=== PATIENT | female | born 1960 | race Caucasian/White ===

== ENCOUNTER → 2016-08-15 | Outpatient (CLI) | payer BC ==
[~2016-08-15] MED LIST: ASP81TEC PO; ASPI-266 PO; BUTA-234 PO; ESTR0.455 PO; FLUO10CA19 PO; FLUO20CA25 PO; FLUO20CA42 PO; IBP600T1 PO; IBP800T PO; MNTL10T PO; NITR100C PO; NITR100C3 PO; OXYC1TAB87 PO; PANT20TA2 PO; VERA40TA2 PO; fluoxetine
--- OUTSIDE RECORDS SUMMARY | 2016-08-15 10:38 | XMS REPORT | Continuity of Care Document ---
Author Author [facility] Organization [facility] Address Unknown Phone Unavailable Care Team Providers Care Foreclosure Field Inspector Name Role Phone Marty Zimmer PCP Unavailable Source Comments Some departments are not documenting in the electronic medical record. If you do not see the information that you expected, contact Release of Information in the Health Information Management department at [phone] for further assistance in locating additional records.[facility] Active Allergies and Adverse Reactions Allergen Noted Date Severity Reactions Comments Iv Contrast Dye, Iodine 12/28/2014 Medium SHORTNESS OF BREATH Containing Penicillins 12/28/2014 Medium HIVES Current Medications Prescription Sig. Disp. Refills Start End Date Status Date aspirin EC 81 mg tablet Take 81 mg by mouth Active daily. FLUoxetine (PROZAC) 10 mg Take 20 mg by mouth Active capsule daily. nitrofurantoin Take 100 mg by mouth as Active (MACRODANTIN) 50 mg Needed. 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 Weakness of left side of body 12/28/2014 Overview: Functional since its fluctuating Resolved Problems Problem Noted Date Resolved Date TIA (transient ischemic attack) 12/28/2014 12/28/2014 Social History Tobacco Use Types Packs/Day Years Used Date Never Smoker Alcohol Use Drinks/Week oz/Week Comments Yes 1 Glasses of 0.6 wine Last Filed Vital Signs Vital Sign Reading Time Taken Blood Pressure 124/73 05/23/2015 2:03 PM CDT Pulse 83 05/23/2015 2:03 PM CDT Temperature 36.9 C (98.5 F) 05/23/2015 2:03 PM CDT Respiratory Rate 18 05/23/2015 2:03 PM CDT Height 1.778 m (5' 10") 05/23/2015 2:03 PM CDT Weight 95.709 kg (211 lb) 05/23/2015 2:03 PM CDT Body Mass Index 30.28 05/23/2015 2:03 PM CDT Oxygen Saturation 98% 05/23/2015 2:03 PM CDT Plan of Care Health Maintenance Due Date Last Done Comments Hepatitis C Screening 1960 Physical (Comprehensive) 1967 Exam Pertussis Vaccine 1971 Tetanus Vaccine 1977 Cervical Cancer Screening 1981 Breast Cancer Screening 2000 Colorectal Cancer 2010 Screening Influenza Vaccine 04/12/2016 Results from Last 3 Months Not on file
--- NOTE | 2016-08-15 12:27 | Diagnostic Imaging Report ---
EXAMINATION: PA and lateral views of the chest. INDICATION: Chest pain. FINDINGS: The lungs are clear of focal infiltrate. There is a 7 mm nodule projecting over the right lung base on the PA view which is not seen on the lateral projection. The heart size is normal. There is no effusion or pneumothorax. The mediastinum and justin appear unremarkable. IMPRESSION: There is a 7 mm nodular density projecting over the right lung base on the PA view which is not seen on the lateral projection and could be an end on vessel or in the soft tissues. Unenhanced low dose CT scan evaluation to rule out a pulmonary nodule is recommended. The report was faxed to the office of Dr. Maldonado by VICENTE at 12:30 PM. Dictated by: Dictated on workstation # [id number]
== END ==
LOC: RAD 10:28
PROVIDERS: ATTEND Family Medicine
DX: R07.9 Chest pain, unspecified (principal)
CPT/HCPCS: 71020

== ENCOUNTER → 2016-08-17 | Outpatient (CLI) | payer BC ==
--- OUTSIDE RECORDS SUMMARY | 2016-08-17 14:45 | XMS REPORT | Continuity of Care Document ---
Author Author [facility] Organization [facility] Address Unknown Phone Unavailable Care Team Providers Care General Ii Farmworker Name Role Phone Marty Zimmer PCP Unavailable Source Comments Some departments are not documenting in the electronic medical record. If you do not see the information that you expected, contact Release of Information in the Health Information Management department at [phone] for further assistance in locating additional records.[facility] Active Allergies and Adverse Reactions Allergen Noted [...]
--- NOTE | 2016-08-17 15:15 | Diagnostic Imaging Report ---
PROCEDURE: CT chest without contrast. TECHNIQUE: Multiple contiguous axial images were obtained through the chest without the use of intravenous contrast. INDICATION: Right lung nodule. FINDINGS: The right lower lung nodule seen on the chest x-ray is a 6 mm calcified granuloma as seen on the CT. There are right hilar calcified lymph nodes present which is also consistent with granulomatous disease. No suspicious mass or infiltrate is seen within either lung. There is no effusion or pneumothorax. There is no mediastinal mass or adenopathy. IMPRESSION: There are changes of old granulomatous disease. The density seen on the chest x-ray represents calcified granuloma. No suspicious abnormality is seen. Dictated by: Dictated on workstation # [id number]
== END ==
LOC: RAD 14:42
PROVIDERS: ATTEND Family Medicine
DX: R91.1 Solitary pulmonary nodule (principal)
CPT/HCPCS: 71250

== ENCOUNTER 2017-05-15 12:35 | Emergency (ER) | payer BC ==
[~2017-05-15] VITALS: Ht 170.2 cm; Wt 79.4 kg
--- OUTSIDE RECORDS SUMMARY | 2017-05-15 12:40 | XMS REPORT | Clinical Summary ---
Author Author [facility] Organization [facility] Address Unknown Phone Unavailable Care Team Providers Care Purchasing Agent Name Role Phone PCP Unavailable Source Comments Some departments are not documenting in the electronic medical record. If you do not see the information that you expected, contact Release of Information in the Health Information Management department at [phone] for further assistance in locating additional records.[facility] Allergies Active Allergy Reactions Severity Noted Date Comments Iodinated Contrast- Oral SHORTNESS OF BREATH Medium 12/28/2014 And Iv Dye Penicillins HIVES Medium 12/28/2014 Current Medications Prescription Sig. Disp. Refills Start [...] Date TIA (transient ischemic attack) 12/28/2014 12/28/2014 Family History Medical History Relation Name Comments Cancer Father Hypertension Father Stroke Father Relation Name Status Comments Father Alive Social History Tobacco Use Types Packs/Day Years Used Date Never Smoker Alcohol Use Drinks/Week oz/Week Comments Yes 1 Glasses of 0.6 wine Sex Assigned at Date Recorded Not on file Last Filed Vital Signs Vital Sign Reading Time Taken Blood Pressure 124/73 05/23/2015 2:03 PM CDT Pulse 83 05/23/2015 2:03 PM CDT Temperature 36.9 C (98.5 F) 05/23/2015 2:03 PM CDT Respiratory Rate 18 05/23/2015 2:03 PM CDT Oxygen Saturation 98% 05/23/2015 2:03 PM CDT Inhaled Oxygen - - Concentration Weight 95.7 kg (211 lb) 05/23/2015 2:03 PM CDT Height 177.8 cm (5' 10") 05/23/2015 2:03 PM CDT Body Mass Index 30.28 05/23/2015 2:03 PM CDT Plan of Treatment Health Maintenance Due Date Last Done Comments HEPATITIS C SCREENING 1960 PHYSICAL (COMPREHENSIVE) 1967 EXAM PERTUSSIS VACCINE 1971 TETANUS VACCINE 1977 CERVICAL CANCER SCREENING 1990 BREAST CANCER SCREENING 2000 COLORECTAL CANCER 2010 SCREENING INFLUENZA VACCINE 05/12/2017 Results Not on filefrom Last 3 Months
--- OUTSIDE RECORDS SUMMARY | 2017-05-15 12:41 | XMS REPORT | Continuity of Care Document ---
Author Author [facility] Address Unknown Phone Unavailable Allergies Active Description Code Type Severity Reaction Onset Reported/Identified Relationship to Patient Clinical Status Yes Penicillins Drug Allergy N/A N/A 04/21/2013 Yes Iodinated Contrast Media - IV Dye [id number] Drug Allergy Mild Dyspnea 12/25/2014 Yes Iodinated Contrast Media - Oral and [id number] Drug Allergy Mild Dyspnea 12/25/2014 Yes Penicillins [id number] Drug Allergy Unknown N/A 12/25/2014 Medications Problems Date Dx Coded Attending Type Code Diagnosis Diagnosed By 09/22/2011 053.9 HERPES ZOSTER WITHOUT COMPLICATION 09/22/2011 099.9 VENEREAL DISEASE UNSPECIFIED 09/22/2011 112.1 CANDIDIASIS VAGINAL 09/22/2011 V76.2 CERVICAL CANCER SCREENING (PAP SMEAR) 09/22/2011 053.9 HERPES ZOSTER WITHOUT COMPLICATION 09/22/2011 099.9 VENEREAL DISEASE UNSPECIFIED 09/22/2011 112.1 CANDIDIASIS VAGINAL 09/22/2011 V76.2 CERVICAL CANCER SCREENING (PAP SMEAR) 09/22/2011 MAXIMOE INDEPENDENT TRADER, LIZBETH A 053.9 HERPES ZOSTER WITHOUT COMPLICATION 09/22/2011 RAJDORYSE INDEPENDENT TRADER, LIZBETH A 099.9 VENEREAL DISEASE UNSPECIFIED 09/22/2011 RAJDORYSE INDEPENDENT TRADER, LIZBETH A 112.1 CANDIDIASIS VAGINAL 09/22/2011 RAJDORYSE INDEPENDENT TRADER, LIZBETH A V76.2 CERVICAL CANCER SCREENING (PAP SMEAR) 09/22/2011 RAJOTTE INDEPENDENT TRADER, LIZBETH A 053.9 HERPES ZOSTER WITHOUT COMPLICATION 09/22/2011 MAXIMOE INDEPENDENT TRADER, LIZBETH A 099.9 VENEREAL DISEASE UNSPECIFIED 09/22/2011 RAJDORYSE INDEPENDENT TRADER, LIZBETH A 112.1 CANDIDIASIS VAGINAL 09/22/2011 RAJDORYSE INDEPENDENT TRADER, LIZBETH A V76.2 CERVICAL CANCER SCREENING (PAP SMEAR) 09/22/2011 FARZAD INDEPENDENT TRADER, LIZBETH A 053.9 HERPES ZOSTER WITHOUT COMPLICATION 09/22/2011 FARZAD ORTIZ LIZBETH A 099.9 VENEREAL DISEASE UNSPECIFIED 09/22/2011 HARRIET PANDA APRNYL A 112.1 CANDIDIASIS VAGINAL 09/22/2011 HARRIET PANDA APRNYL A V76.2 CERVICAL CANCER SCREENING (PAP SMEAR) 01/31/2012 Ot 836.2 TEAR MENISCUS NEC-CURREN 01/31/2012 Ot 959.7 LOWER LEG INJURY NOS 01/31/2012 Ot E000.8 OTHER EXTERNAL CAUSE STATUS 01/31/2012 Ot E849.0 ACCIDENT IN HOME 01/31/2012 Ot E880.9 FALL ON STAIR/STEP NEC 03/31/2012 943.29 BLISTERS WITH EPIDERMAL LOSS DUE TO BURN (SECOND DEGREE) OF MULTIPLE SITES OF UPPER LIMB EXCEPT WRIST AND HAND 03/31/2012 943.29 BLISTERS WITH EPIDERMAL LOSS DUE TO BURN (SECOND DEGREE) OF MULTIPLE SITES OF UPPER LIMB EXCEPT WRIST AND HAND 03/31/2012 FARZAD ORTIZ LIZBETH A 943.29 BLISTERS WITH EPIDERMAL LOSS DUE TO BURN (SECOND DEGREE) OF MULTIPLE SITES OF UPPER LIMB EXCEPT WRIST AND HAND 03/31/2012 FARZAD ORTIZ, LIZBETH A 943.29 BLISTERS WITH EPIDERMAL LOSS DUE TO BURN (SECOND DEGREE) OF MULTIPLE SITES OF UPPER LIMB EXCEPT WRIST AND HAND 03/31/2012 FARZAD ORTIZ, LIZBETH A 943.29 BLISTERS WITH EPIDERMAL LOSS DUE TO BURN (SECOND DEGREE) OF MULTIPLE SITES OF UPPER LIMB EXCEPT WRIST AND HAND 04/21/2013 133.0 SCABIES 04/21/2013 708.9 URTICARIA/HIVES UNSPEC 04/21/2013 FARZAD ORTIZ LIZBETH A 133.0 SCABIES 04/21/2013 FARZAD INDEPENDENT TRADER, LIZBETH A 708.9 URTICARIA/HIVES UNSPEC 04/21/2013 FARZAD ORTIZ LIZBETH A 133.0 SCABIES 04/21/2013 FARZAD ORTIZ LIZBETH A 708.9 URTICARIA/HIVES UNSPEC 04/21/2013 FARZAD INDEPENDENT TRADER, LIZBETH A 133.0 SCABIES 04/21/2013 FARZAD ORTIZ LIZBETH A 708.9 URTICARIA/HIVES UNSPEC 07/24/2013 REGINA YOUSSEFGAGAN Ot 346.80 OTH FORMS MIGRAINE W/O INTRACT MGRN W/O 07/24/2013 GAGAN TAPIA MD Ot 368.8 VISUAL DISTURBANCES NEC 07/24/2013 GAGAN TAPIA MD Ot 434.91 CEREBRAL ART OCCLUSION NOS W CEREBRAL IN 07/24/2013 GAGAN TAPIA MD Ot 518.89 OTHER DISEASES OF LUNG, NEC 07/24/2013 GAGAN TAPIA MD Ot 728.87 MUSCLE WEAKNESS (GENERALIZED) 07/24/2013 GAGAN TAPIA MD Ot 793.19 OTHER NONSPECIFIC ABNORMAL FINDING OF ADRIAN 07/24/2013 GAGAN TAPIA MD Ot 799.02 HYPOXEMIA 07/24/2013 GAGAN TAPIA MD Ot V04.81 ND FOR PROPHYLACTIC VACCIN AND INOCULATI 08/25/2013 KRYSTIAN JARRETT DO Ot 300.00 ANXIETY STATE NOS 08/25/2013 KRYSTIAN JARRETT DO Ot 346.90 MIGRAINE UNSPECIFIED W/O INTRACT MGRN W/ 08/25/2013 KRYSTIAN JARRETT DO Ot V58.69 OTH MED,LT,CURRENT USE 10/22/2013 RAJOTTE INDEPENDENT TRADER, LIZBETH A 700 CALLUS/CORN 10/22/2013 RAJOTTE INDEPENDENT TRADER, LIZBETH A 700 CALLUS/CORN 10/22/2013 RAJOTTE INDEPENDENT TRADER, LIZBETH A 700 CALLUS/CORN 12/10/2013 RAJOTTE INDEPENDENT TRADER, LIZBETH A 461.9 SINUSITIS ACUTE 12/10/2013 MAXIMOE ANGEL, LIZBETH A 461.9 SINUSITIS ACUTE 12/20/2013 DAYAMI NEGRETE Ot 346.80 OTH FORMS MIGRAINE W/O INTRACT MGRN W/O 12/20/2013 DAYAMI NEGRETE Ot 434.91 CEREBRAL ART OCCLUSION NOS W CEREBRAL IN 06/03/2014 FARZAD ORTIZ LIZBETH A V04.81 FLU SHOT 07/21/2014 GAGAN TAPIA MD Ot 433.10 07/21/2014 DAYAMI NEGRETE Ot 722.10 07/21/2014 DAYAMI NEGRETE Ot 722.93 07/21/2014 DAYAMI NEGRETE Ot 729.5 07/21/2014 Ot 346.80 07/21/2014 Ot 434.91 07/21/2014 Ot 346.80 07/21/2014 Ot 434.91 07/21/2014 HUSSAIN ALDRICH MD Ot 346.90 MIGRAINE UNSPECIFIED W/O INTRACT MGRN W/ 07/21/2014 HUSSAIN ALDRICH MD Ot 784.0 HEADACHE 12/25/2014 Ot 346.80 12/25/2014 Ot 434.91 12/25/2014 Ot 346.80 12/25/2014 Ot 434.91 12/28/2014 LYN MCFARLAND MD Ot 346.80 OTH FORMS MIGRAINE W/O INTRACT MGRN W/O 12/28/2014 LYN MCFARLAND MD Ot 435.9 TRANS CEREB ISCHEMIA NOS 12/28/2014 BRUNA YOUSSEF, LYN Arredondo Ot 786.50 CHEST PAIN NOS 02/22/2015 WICHO YOUSSEF, RONEY Ot V72.84 02/22/2015 WICHO YOUSSEF, RONEY Ot V72.84 02/23/2015 WICHO YOUSSEF, RONEY Ot 455.0 INT HEMORRHOID W/O COMPL 02/23/2015 WICHO YOUSSEF, RONEY Ot 455.3 EXT HEMORRHOID W/O COMPL 02/23/2015 WICHO YOUSSEF, RONEY Ot 530.11 REFLUX ESOPHAGITIS 02/23/2015 WICHO YOUSSEF, RONEY Ot 535.50 UNSP GASTRITIS GASTRODUODENITIS W/O ME 02/23/2015 WICHO YOUSSEF, RONEY Ot 553.3 DIAPHRAGMATIC HERNIA 02/23/2015 WICHO YOUSSEF, RONEY Ot V16.3 FAMILY HX-BREAST MALIG 02/23/2015 WICHO YOUSSEF, RONEY Ot V76.51 SCREEN MAL NEOP-COLON 05/16/2015 HUSSAIN ALDRICH MD Ot G43.109 MIGRAINE WITH AURA, NOT INTRACTABLE, W/O 05/16/2015 HUSSAIN ALDRICH MD Ot G43.909 MIGRAINE, UNSP, NOT INTRACTABLE, WITHOUT 08/15/2016 REGINA YOUSSEF, GAGAN Cooley Ot 433.10 CAROTID ARTERY OCCLUSION W O CEREBRAL IN 08/15/2016 DAYAMI NEGRETE Ot 722.10 LUMBAR DISC DISPLACEMENT 08/15/2016 DAYAMI NEGRETE Ot 722.93 DISC DIS NEC/NOS-LUMBAR 08/15/2016 DAYAMI NEGRETE Ot 729.5 PAIN IN LIMB 08/15/2016 Ot 346.80 OTH FORMS MIGRAINE W/O INTRACT MGRN W/O 08/15/2016 Ot 434.91 CEREBRAL ART OCCLUSION NOS W CEREBRAL IN 08/15/2016 WICHO YOUSSEF, RONEY Ot V72.84 EXAM PRE-OPERATIVE NOS 08/20/2016 GAGAN TAPIA MD Ot R91.1 SOLITARY PULMONARY NODULE 09/03/2016 GAGAN TAPIA MD Ot R07.9 CHEST PAIN, UNSPECIFIED 09/03/2016 GAGAN TAPIA MD Ot R91.1 SOLITARY PULMONARY NODULE Procedures Code [place] [address] THERAPUTIC INJ SQ/IM 04/21/2013 J1030 DEPO MEDROL 40 MG INJ 04/21/2013 Results Encounters ACCT No. Visit Date/Time Discharge Status Pt. Type Provider Facility Loc./Unit Complaint [id number] 06/03/2014 14:03:00 06/03/2014 23: 59:59 CLS Outpatient LIZBETH PANDA APRN [id number] 12/10/2013 10:56:00 12/10/2013 23: 59:59 CLS Outpatient LIZBETH PANDA APRN [id number] 10/22/2013 14:14:00 10/22/2013 23: 59:59 CLS Outpatient LIZBETH PANDA APRN [id number] 03/31/2012 18:24:00 03/31/2012 23: 59:59 CLS Outpatient [id number] 04/21/2013 13:37:00 Document Registration [id number] 08/17/2016 14:42:00 2016 23:59:59 CLS Outpatient GAGAN TAPIA MD [facility] RAD R LOWER LUNG 7MM NODULA DENSITY BY CXR [id number] 08/15/2016 10:28:00 2016 23:59:59 CLS Outpatient GAGAN TAPIA MD [facility] RAD LT UPPER CHEST PAIN [id number] 05/16/2015 21:16:00 2014 23:33:00 DIS Emergency HUSSAIN ALDRICH MD [facility] ER POSSIBLE STROKE [id number] 02/23/2015 07:47:00 2014 11:56:00 DIS Outpatient RONEY SANDS MD [facility] SDC SCREENING; REFLUX [id number] 02/17/2015 06:52:00 2014 23:59:59 CLS Outpatient RONEY SANDS MD [facility] PREOP SCREENING; REFLUX [id number] 12/25/2014 15:20:00 2014 10:05:00 DIS Inpatient LYN MCFARLAND MD [facility] 4TH LEFT SIDED WEAKNESS HEADACHE ATYPICAL CHEST PAIN [id number] 07/21/2014 15:37:00 2013 18:03:00 DIS Emergency HUSSAIN ALDRICH MD [facility] ER HEADACHE [id number] 10/23/2013 10:07:00 2013 00:01:00 DIS Outpatient DAYAMI NEGRETE [facility] ONC [id number] 10/28/2013 13:27:00 2013 23:59:59 CLS Outpatient DAYAMI NEGRETE [facility] RAD LBP, LEFT LEG PAIN [id number] 08/25/2013 14:34:00 2013 17:16:00 DIS Emergency LUIZA SANCHEZ KRYSTIAN Jim [facility] ER WEAKNESS/STERN/CONFUSED [id number] 07/31/2013 12:44:00 2012 23:59:59 CLS Outpatient GAGAN TAPIA MD [facility] RAD LFT WEAKNESS, DIZZINESS [id number] 07/20/2013 14:58:00 2012 10:50:00 DIS Inpatient GAGAN TAPIA MD [facility] 4TH CVA [id number] 01/22/2014 00:00:00 Document Registration [id number] 01/31/2012 08:37:00 Document Registration
--- OUTSIDE RECORDS SUMMARY | 2017-05-15 12:41 | XMS REPORT ---
Author Author LIZBETH PANDA Organization [employer] Address Unknown Phone Unavailable Care Team Providers Care User Interface Engineer Name Role Phone LIZBETH PANDA CP Unavailable Allergies No Known Allergies Problems Problem Type Condition Code Onset Dates Condition Status Problem Need for prophylactic vaccination and inoculation, Influenza V04.81 Active Problem Corns and callosities 700 Active Problem Blisters with epidermal loss due to burn (second degree) of multiple sites of upper limb, except wrist and hand 943.29 Active Assessment Encounter for immunization Z23 Active Problem Unspecified urticaria 708.9 Active Problem Scabies 133.0 Active Problem Acute sinusitis, unspecified 461.9 Active Problem Screening for malignant neoplasm of the cervix V76.2 Active Problem Unspecified venereal disease 099.9 Active Problem Candidiasis of vulva and vagina 112.1 Active Problem Herpes zoster without mention of complication 053.9 Active Medications No Known Medications Procedures Procedure Coding System Code Date TDAP (BOOSTRIX) CPT-4 99328 Jun 02, 2015 SINGLE IMMUNIZATION ADMIN CPT-4 65004 Jun 02, 2015 FLUARIX QUAD (3 & UP)-GSK CPT-4 36475 Jun 02, 2015 IMMUNIZATION ADMIN, EACH ADD (please include units) CPT-4 02057 Jun 02, 2015 Results No Known Results Immunizations Vaccine Administration Date FLUARIX QUAD (3 & UP)-GSK-2014Jun 02, 2015 TDAP (BOOSTRIX) Jun 02, 2015 Summary Purpose [employer] Submission
[2017-05-15] MEDS ORDERED: KETOROLAC 30 MG/ML VIAL IVP STA (12:43)
[2017-05-15] MEDS ORDERED: PROMETHAZINE INJ 25 MG/ML (PHENERGAN) AMP IVP STA (12:43)
[2017-05-15] MEDS ORDERED: diphenhydrAMINE 50 MG/ML INJ (BENADRYL) IV ONE (12:45)
--- NOTE | 2017-05-15 13:01 | Diagnostic Imaging Report ---
CLINICAL INDICATION: Patient with weakness and headache. EXAM: Axial CT scan of the brain was performed without IV contrast. COMPARISON: Head CT without IV contrast dated 05/16/2015. FINDINGS: There is no evidence of acute cerebral infarct, intracranial hemorrhage, or gross mass effect. There is normal lake-white matter distinction. The brain parenchymal volume appears appropriate for patient's age. There is no significant midline shift or herniation. There is no evidence of hydrocephalus. The basal cisterns are unremarkable. The skull, extracranial soft tissue, and orbits are unremarkable. There is mild/ moderate peripheral mucosal thickening involving the left maxillary sinus and mild mucosal thickening involving the right maxillary sinus. These findings have progressed compared to the prior study. IMPRESSION: 1: Interval development of bilateral maxillary sinus disease. 2: Otherwise stable and unremarkable CT scan of the brain for age. Dictated by: Dictated on workstation # [id number]
[2017-05-15] MEDS ORDERED: NS IV 500 ML 500 ML IV ONE (13:23)
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
[2017-05-15 13:39] LABS: BASOPHILS # (AUTO) 0.1 10^3/uL (0.0-0.1); BASOPHILS % (AUTO) 1 % (0-10); EOSINOPHILS # (AUTO) 0.1 10^3/uL (0.0-0.3); EOSINOPHILS % (AUTO) 1 % (0-10); LYMPHOCYTES # (AUTO) 1.6 X 10^3 (1.0-4.0); LYMPHOCYTES % (AUTO) 18 % (12-44); MEAN CORPUSCULAR HEMOGLOBIN 32 PG (25-34); MEAN CORPUSCULAR HGB CONC 34 G/DL (32-36); MEAN CORPUSCULAR VOLUME 95 FL (80-99); MEAN PLATELET VOLUME 9.4 FL (7.4-10.4); MONOCYTES # (AUTO) 0.7 X 10^3 (0.0-1.0); MONOCYTES % (AUTO) 8 % (0-12); NEUTROPHILS # (AUTO) 6.3 X 10^3 (1.8-7.8); NEUTROPHILS % (AUTO) 73 % (42-75); PLATELET COUNT 318 10^3/uL (130-400); RED BLOOD COUNT 4.36 10^6/uL (4.35-5.85); RED CELL DISTRIBUTION WIDTH 12.3 % (10.0-14.5); WHITE BLOOD COUNT 8.7 10^3/uL (4.3-11.0)
[2017-05-15 13:48] LABS: INR 0.9 (0.8-1.4); PROTHROMBIN TIME PATIENT 12.4 SEC (12.2-14.7)
--- NOTE | 2017-05-15 13:48 | Diagnostic Imaging Report ---
Portable upright radiograph of the chest. INDICATION: Altered mental status. FINDINGS: The lungs are clear. The heart size is normal. There is no effusion or pneumothorax The mediastinum and justin appear unremarkable. IMPRESSION: Unremarkable study. Dictated by: Dictated on workstation # [id number]
[2017-05-15 13:56] LABS: ALANINE AMINOTRANSFERASE 22 U/L (0-55); ALBUMIN 4.2 GM/DL (3.2-4.5); ANION GAP 10 MMOL/L (5-14); ASPARTATE AMINO TRANSFERASE 18 U/L (5-34); BILIRUBIN,TOTAL 0.5 MG/DL (0.1-1.0); BLOOD UREA NITROGEN 14 MG/DL (7-18); BUN/CREATININE RATIO 20; CALCIUM 9.8 MG/DL (8.5-10.1); CARBON DIOXIDE 23 MMOL/L (21-32); CHLORIDE 107 MMOL/L (98-107); GFR ESTIMATED > 60; GLUCOSE 101 MG/DL (70-105); POTASSIUM 3.6 MMOL/L (3.6-5.0); SODIUM 140 MMOL/L (135-145); TOTAL PROTEIN 7.1 GM/DL (6.4-8.2)
[2017-05-15 14:02] LABS: TROPONIN I < 0.30 NG/ML (<0.30)
[2017-05-15 14:18] LABS: BILIRUBIN,URINE NEGATIVE (NEGATIVE); KETONES,URINE NEGATIVE (NEGATIVE); LEUKOCYTE ESTERASE ,URINE NEGATIVE (NEGATIVE); NITRITE,URINE NEGATIVE (NEGATIVE); PH,URINE 7 (5-9); PROTEIN,URINE NEGATIVE (NEGATIVE); UROBILINOGEN,URINE NORMAL (NORMAL)
[2017-05-15 14:57] VITALS: BP 130/81
== END 2017-05-15 14:57 | disposition home or self-care (01) ==
LOC: EDUNIT# 12:35 → ER 12:36
DX: G43.909 Migraine, unspecified, not intractable, without status migrainosus (principal); I10 Essential (primary) hypertension; K21.9 Gastro-esophageal reflux disease without esophagitis; F41.9 Anxiety disorder, unspecified; F32.9 Major depressive disorder, single episode, unspecified; Z87.19 Personal history of other diseases of the digestive system; Z79.82 Long term (current) use of aspirin; Z90.710 Acquired absence of both cervix and uterus; Z80.0 Family history of malignant neoplasm of digestive organs; Z87.448 Personal history of other diseases of urinary system; Z87.440 Personal history of urinary (tract) infections
CPT/HCPCS: 36415; 70450; 71010; 80053; 81000; 82962; 84484; 85025; 85379; 85610; 85730; 93005; 93041; 96374; 96375

== ENCOUNTER → 2018-08-22 | Outpatient (CLI) | payer BC ==
--- NOTE | 2018-08-22 10:00 | Diagnostic Imaging Report ---
Indication: Routine screening. Comparison is made with prior mammogram from 11/26/2011. 2-D and 3-D bilateral screening mammography was performed with CAD. Both breasts remain heterogeneously dense, limiting the sensitivity of mammography. A BB marker was placed an area of discoloration in the right breast. No mass or malignant-appearing microcalcifications are seen. There are benign calcifications present. Axillae unremarkable. Impression: BI-RADS category 2 No mammographic features suspicious for malignancy are identified. ACR BI-RADS Category 2: Benign findings. Result letter will be mailed to the patient. Note: At least 10% of breast cancer is not imaged by mammography. Dictated by: Dictated on workstation # [id number]
== END ==
LOC: RAD 07:34
PROVIDERS: ATTEND Family Medicine
DX: Z12.31 Encounter for screening mammogram for malignant neoplasm of breast (principal)
CPT/HCPCS: 77067

== ENCOUNTER 2019-03-05 12:09 | Emergency (ER) | payer BC ==
[~2019-03-05] VITALS: Ht 182.9 cm; Wt 95.3 kg
--- NOTE | 2019-03-05 12:27 | ED Neurological Problem ---
General Chief Complaint: Neurological Problems Stated Complaint: FACE/LEFT ARM NUMB Source: patient Exam Limitations: no limitations History of Present Illness Date Seen by Provider: Mar 05, 2019 Time Seen by Provider: 12:26 Initial Comments To ER with reports of suspicion for stroke. This began about 20 minutes ago while she was driving home from [place] with work, she is employed with [employer]. Onset was then around noon today. She has a history of stroke she states that has left her with some left-sided "not working as well as the right side" but no paralysis or measurable deficit. She is very tearful on arrival, stating "I'm not crazy", appears very anxious. She states she feels somewhat confused. She has a history of migraines. She presented here similarly twice in the past for left-sided weakness associated with headache, at one time she did receive TPA for suspicion of stroke. She is on verapamil because she states that her stroke was caused by spasm of one of the arteries. She follows with neurology at , primary care is Dr. Tapia. She's had left leg numbness for quite some time, s everal days she states. The left facial numbness is what is new and began today. Timing/Duration: 1/2 hour Severity: moderate Associated Symptoms: No slurred speech, No vision changes Allergies and Home Medications Allergies Coded Allergies: Penicillins (Verified Allergy, Unknown, 12/25/14) Iodinated Contrast Media - IV Dye (Verified Adverse Reaction, Mild, Dyspnea, 12/25/14) Brief dyspnea after prior adminstration of contrast dye. No reaction with pretreatment of Benadryl and Solu-Medrol 12/25/14. Home Medications Aspirin 81 Mg Tablet.dr, 81 MG PO DAILY, (Reported) Fluoxetine Hcl 20 Mg Capsule, 20 MG PO DAILY, (Reported) Pantoprazole Sodium 20 Mg Tablet.dr, 40 MG PO DAILY Prescribed by: RONEY SANDS on 02/23/15 1105 Verapamil Hcl 40 Mg Tablet, 1 EA PO BID, (Reported) Patient Home Medication List Home Medication List Reviewed: Yes Review of Systems Review of Systems Constitutional: see HPI Eyes: No Symptoms Reported Ears, Nose, Mouth, Throat: no symptoms reported Respiratory: no symptoms reported Cardiovascular: no symptoms reported Genitourinary: no symptoms reported Musculoskeletal: no symptoms reported Skin: no symptoms reported Psychiatric/Neurological: See HPI Past [id number] Hx Immunizations Up To Date Date of Influenza Vaccine: May 12, 2014 Seasonal Allergies Seasonal Allergies: No Past Medical History Surgeries: Yes (D&C) Hysterectomy, Orthopedic Respiratory: No Cardiac: Yes (HYPOTENSION NORMALLY, MITRAL VALVE PROLAPSE) Hypertension Neurological: Yes (PRIOR THROMBOLYTICS) Headaches /Migraines, Stroke 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 Kidney Infection, Bladder Infection, UTI-Chronic Gastrointestinal: Yes Gastroesophageal Reflux, Diverticulosis Musculoskeletal: Yes (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 0.5oz. 79.775484yi; BMI Method:Estimated General Appearance: WD/WN, no apparent distress Respiratory: no respiratory distress, no accessory muscle use Gastrointestinal: normal bowel sounds, non tender, soft Neurologic/Psychiatric: alert, normal mood/affect, oriented x 3 Crainal Nerves: normal hearing, normal speech Coordination/Gait: normal finger to nose Motor/Sensory: no motor deficit, no sensory deficit (she reports tingling sensation in the left arm, but sensation of me touching her is the same.) Skin: normal color, warm/dry Stroke Stroke Thrombolytic Exclusion Age 18 or Over: Yes Acute intenal hemorrhage: No History of CVA: Yes Uncontrolled Coagulation Defec: No Intracranial Hemorrhage: No Severe Hypertension: No GI or Bleed: No Subarachnoid Hemorrhage: No Intracranial Neoplasm/Aneurysm: No Oral Anticoagulants: No Surgery or Trauma: No Puncture of Non-Compressible V: No Recent CPR: No Diabetic Hemorrhagic Retinopat: No Organ Biopsy: No Recent Obstetric Delivery: No Glucose: No Significant Hepatic Dysfunctio: No NIH Stoke Scale >22: No Bacterial Endocarditis: No Pericarditis: No Improving Symptoms: Yes Platelets: No Progress/Results/Core Measures Results/Orders Lab Results Laboratory Tests Test 03/05/19 12:19 03/05/19 12:41 03/05/19 13:47 Range/Units White Blood Count 7.7 4.3-11.0 10^3/uL Red Blood Count 4.74 4.35-5.85 10^6/uL Hemoglobin 15.7 11.5-16.0 G/DL Hematocrit 46 35-52 % Mean Corpuscular Volume 97 80-99 FL Mean Corpuscular Hemoglobin 33 25-34 PG Mean Corpuscular Hemoglobin Concent 34 32-36 G/DL Red Cell Distribution Width 12.9 10.0-14.5 % Platelet Count 316 130-400 10^3/uL Mean Platelet Volume 9.2 7.4-10.4 FL Neutrophils (%) (Auto) 64 42-75 % Lymphocytes (%) (Auto) 23 12-44 % Monocytes (%) (Auto) 11 0-12 % Eosinophils (%) (Auto) 2 0-10 % Basophils (%) (Auto) 1 0-10 % Neutrophils # (Auto) 5.0 1.8-7.8 X 10^3 Lymphocytes # (Auto) 1.8 1.0-4.0 X 10^3 Monocytes # (Auto) 0.8 0.0-1.0 X 10^3 Eosinophils # (Auto) 0.2 0.0-0.3 10^3/uL Basophils # (Auto) 0.1 0.0-0.1 10^3/uL Prothrombin Time 13.0 12.2-14.7 SEC INR Comment 0.9 0.8-1.4 Activated Partial Thromboplast Time 31 24-35 SEC D-Dimer 0.42 0.00-0.49 UG/ML Sodium Level 140 135-145 MMOL/L Potassium Level 4.0 3.6-5.0 MMOL/L Chloride Level 105 98-107 MMOL/L Carbon Dioxide Level 22 21-32 MMOL/L Anion Gap 13 5-14 MMOL/L Blood Urea Nitrogen 14 7-18 MG/DL Creatinine 0.84 0.60-1.30 MG/DL Estimat Glomerular Filtration Rate > 60 BUN/Creatinine Ratio 17 Glucose Level 100 70-105 MG/DL Calcium Level 10.2 H 8.5-10.1 MG/DL Corrected Calcium 8.5-10.1 MG/DL Total Bilirubin 0.6 0.1-1.0 MG/DL Aspartate Amino Transf (AST/SGOT) 24 5-34 U/L Alanine Aminotransferase (ALT/SGPT) 31 0-55 U/L Alkaline Phosphatase 125 40-136 U/L Troponin I < 0.028 <0.028 NG/ML Total Protein 8.1 6.4-8.2 GM/DL Albumin 4.8 H 3.2-4.5 GM/DL Glucometer 101 70-110 MG/DL Urine Color YELLOW Urine Clarity CLEAR Urine pH 6 5-9 Urine Specific [place] 1.010 L 1.016-1.022 Urine Protein NEGATIVE NEGATIVE Urine Glucose (UA) NEGATIVE NEGATIVE Urine Ketones NEGATIVE NEGATIVE Urine Nitrite NEGATIVE NEGATIVE Urine Bilirubin NEGATIVE NEGATIVE Urine Urobilinogen NORMAL NORMAL MG/DL Urine Leukocyte Esterase NEGATIVE NEGATIVE Urine RBC (Auto) NEGATIVE NEGATIVE Urine RBC NONE /HPF Urine WBC NONE /HPF Urine Squamous Epithelial Cells 0-2 /HPF Urine Crystals NONE /LPF Urine Bacteria NEGATIVE /HPF Urine Casts NONE /LPF Urine Mucus NEGATIVE /LPF Urine Culture Indicated NO My Orders Orders - AMADA BROWN APRN Cbc With Automated Diff (03/05/19 12:24) Protime With Inr (03/05/19 12:24) Partial Thromboplastin Time (03/05/19 12:24) Comprehensive Metabolic Panel (03/05/19 12:24) Fibrin Degradation Products (03/05/19 12:24) Troponin I (03/05/19 12:24) Ua Culture If Indicated (03/05/19 12:24) Chest 1 View, Ap/Pa Only (03/05/19 12:24) Ekg Tracing (03/05/19 12:24) Accucheck Stat ONCE (03/05/19 12:24) Ed Iv/Invasive Line Start (03/05/19 12:24) Ed Iv/Invasive Line Start (03/05/19 12:24) Vital Signs Stroke Patient Q15M (03/05/19 12:24) Ct Head Wo-R/O Stroke (03/05/19 12:24) O2 (03/05/19 12:24) Intake & Output 06,14,22 (03/05/19 12:24) Monitor-Rhythm Ecg Trace Only (03/05/19 12:24) Dysphagia Screening Tool (03/05/19 12:24) Post Thrombolytic Adminstratio (03/05/19 12:24) Ketorolac Injection (Toradol Injection) (03/05/19 12:30) Diphenhydramine Injection (Benadryl Inje (03/05/19 12:30) Prochlorperazine Injection (Compazine In (03/05/19 12:30) Medications Given in ED Current Medications Medications Dose Ordered Sig/Kelli Route Start Time Stop Time Status Last Admin Dose Admin Diphenhydramine HCl 25 mg ONCE ONCE IVP 03/05/19 12:30 03/05/19 12:31 DC 03/05/19 12:41 25 MG Ketorolac Tromethamine 15 mg ONCE ONCE IVP 03/05/19 12:30 03/05/19 12:31 DC 03/05/19 12:37 15 MG Prochlorperazine Edisylate 5 mg ONCE ONCE IV 03/05/19 12:30 03/05/19 12:31 DC 03/05/19 12:38 5 MG Vital Signs/I&O 03/05/19 03/05/19 03/05/19 12:18 12:59 14:31 Temp 97.3 97.3 Pulse 101 101 73 Resp 20 B/P (MAP) 159/100 (119) 159/100 130/78 (95) Pulse Ox 99 99 99 O2 Delivery Room Air Departure Communication (Admissions) 1312-return from CT, CT unremarkable for acute bleed. Symptoms are now 0 on the NIH score, there is no drift of the arm, no ataxia. She states that her face still feels a little tingly on the left but overall improved, left arm tingling is gone. The left arm tingling has been present for 2-3 weeks. This improvement in symptoms follows administration of Toradol and Benadryl and Compazine. Her blood pressure is now normal at 126/82. 1350-discussed the case with stroke neurologist Dr. Posey from [facility], agrees this is Migraine variant. No additional workup is warranted at this time. Impression Primary Impression: Complicated migraine Additional Impressions: Left-sided weakness Anxiety Disposition: 01 HOME, SELF-CARE Condition: Improved Departure-Patient Inst. Decision time for Depature: 13:51 Referrals: GAGAN TAPIA MD (PCP/Family) Primary Care Physician Patient Instructions: Migraine Headache (DC) Add. Discharge Instructions: 1. Follow-up with Dr. Tapia. Call today to make an appointment to be seen tomorrow if possible. He should also call the neurologist at the [facility] who you have seen previously to make an appointment to be seen for follow-up. All discharge instructions reviewed with patient and/or family. Voiced understanding. AMADA BROWN STAFFING ASSOCIATE Mar 05, 2019 12:27
[2019-03-05] MEDS ORDERED: PROCHLORPERAZINE 10 MG/2ML INJ (COMPAZINE) IV ONE (12:30)
[2019-03-05] MEDS ORDERED: diphenhydrAMINE 50 MG/ML INJ (BENADRYL) IVP ONE (12:30)
[2019-03-05] MEDS ORDERED: KETOROLAC 30 MG/ML VIAL IVP ONE (12:30)
[2019-03-05 12:33] LABS: BASOPHILS # (AUTO) 0.1 10^3/uL (0.0-0.1); BASOPHILS % (AUTO) 1 % (0-10); EOSINOPHILS # (AUTO) 0.2 10^3/uL (0.0-0.3); EOSINOPHILS % (AUTO) 2 % (0-10); HEMATOCRIT 46 % (35-52); HEMOGLOBIN 15.7 G/DL (11.5-16.0); LYMPHOCYTES # (AUTO) 1.8 X 10^3 (1.0-4.0); LYMPHOCYTES % (AUTO) 23 % (12-44); MEAN CORPUSCULAR HEMOGLOBIN 33 PG (25-34); MEAN CORPUSCULAR HGB CONC 34 G/DL (32-36); MEAN CORPUSCULAR VOLUME 97 FL (80-99); MEAN PLATELET VOLUME 9.2 FL (7.4-10.4); MONOCYTES # (AUTO) 0.8 X 10^3 (0.0-1.0); MONOCYTES % (AUTO) 11 % (0-12); NEUTROPHILS % (AUTO) 64 % (42-75); PLATELET COUNT 316 10^3/uL (130-400); RED CELL DISTRIBUTION WIDTH 12.9 % (10.0-14.5); WHITE BLOOD COUNT 7.7 10^3/uL (4.3-11.0)
[2019-03-05 12:47] LABS: ALANINE AMINOTRANSFERASE 31 U/L (0-55); ALBUMIN 4.8 GM/DL (3.2-4.5); ALKALINE PHOSPHATASE 125 U/L (40-136); BILIRUBIN,TOTAL 0.6 MG/DL (0.1-1.0); BUN/CREATININE RATIO 17; CALCIUM 10.2 MG/DL (8.5-10.1); CARBON DIOXIDE 22 MMOL/L (21-32); CHLORIDE 105 MMOL/L (98-107); CREATININE SERUM 0.84 MG/DL (0.60-1.30); FIBRIN DEGRADATION PRODUCTS 0.42 UG/ML (0.00-0.49); GFR ESTIMATED > 60; GLUCOSE 100 MG/DL (70-105); INR 0.9 (0.8-1.4); SODIUM 140 MMOL/L (135-145); TOTAL PROTEIN 8.1 GM/DL (6.4-8.2)
[2019-03-05 12:59] VITALS: BP 159/100
--- NOTE | 2019-03-05 13:00 | Diagnostic Imaging Report ---
PROCEDURE: CT head wo r/o stroke. TECHNIQUE: Multiple contiguous axial images were obtained through the brain without the use of intravenous contrast. Auto Exposure Controls were utilized during the CT exam to meet ALARA standards for radiation dose reduction. INDICATION: Evaluate for stroke. Left-sided arm and face tingling. COMPARISON: CT head on 05/15/2017 FINDINGS: The ventricles and cortical sulci are age-appropriate. There is no midline shift or mass-effect. No acute intracranial hemorrhage is seen. There is no CT evidence of acute territorial ischemia. No focal masses or collections are present. The calvarium is intact. The visualized paranasal sinuses are clear. IMPRESSION: No hemorrhage or focal intra-axial mass. No CT evidence of large acute territorial ischemia. Dictated by: Dictated on workstation # [id number]
--- NOTE | 2019-03-05 13:17 | Diagnostic Imaging Report ---
INDICATION: Stroke. COMPARISON: Comparison made with prior examination from 05/15/2017. FINDINGS: The heart size, mediastinal configuration, and pulmonary vascularity are within normal limits. There is no pleural effusion, pneumothorax, or pneumonia. The osseous structures are unremarkable. IMPRESSION: No acute cardiopulmonary abnormality. Dictated by: Dictated on workstation # [id number]
[2019-03-05 13:57] LABS: BILIRUBIN,URINE NEGATIVE (NEGATIVE); CLARITY,URINE CLEAR; COLOR,URINE YELLOW; GLUCOSE, URINE (UA) NEGATIVE (NEGATIVE); KETONES,URINE NEGATIVE (NEGATIVE); LEUKOCYTE ESTERASE ,URINE NEGATIVE (NEGATIVE); NITRITE,URINE NEGATIVE (NEGATIVE); PH,URINE 6 (5-9); PROTEIN,URINE NEGATIVE (NEGATIVE); UROBILINOGEN,URINE NORMAL (NORMAL)
[2019-03-05 14:03] LABS: BACTERIA,URINE NEGATIVE /HPF; SQUAMOUS EPITHELIAL CELL,UR 0-2 /HPF
[2019-03-05 14:31] VITALS: BP 130/78
== END 2019-03-05 14:31 | disposition home or self-care (01) ==
LOC: EDUNIT# 12:09 → ER 12:10
DX: G43.109 Migraine with aura, not intractable, without status migrainosus (principal); R53.1 Weakness; F41.9 Anxiety disorder, unspecified; I10 Essential (primary) hypertension; F32.9 Major depressive disorder, single episode, unspecified; K21.9 Gastro-esophageal reflux disease without esophagitis; Z86.73 Personal history of transient ischemic attack (TIA), and cerebral infarction without residual deficits; Z80.8 Family history of malignant neoplasm of other organs or systems; Z88.0 Allergy status to penicillin; Z91.041 Radiographic dye allergy status; Z79.82 Long term (current) use of aspirin; Z90.710 Acquired absence of both cervix and uterus; Z87.19 Personal history of other diseases of the digestive system; Z82.49 Family history of ischemic heart disease and other diseases of the circulatory system
CPT/HCPCS: 36415; 70450; 71045; 80053; 81000; 82962; 84484; 85025; 85379; 85610; 85730; 93005; 93041; 96374; 96375

== ENCOUNTER → 2020-08-29 | Outpatient (CLI) | payer BC ==
--- NOTE | 2020-08-29 12:02 | Diagnostic Imaging Report ---
INDICATION: Cough, history of COVID infection 08/19/2020 PA and lateral chest obtained at 1106hours a.m. and compared to 03/05/2019. Heart and mediastinal silhouette are normal appearance. The lungs are clear. There is no pneumothorax or pleural fluid. IMPRESSION: Negative chest. Dictated by: Dictated on workstation # [id number]
== END ==
LOC: RAD 10:44
PROVIDERS: ATTEND Family Medicine
DX: U07.1 COVID-19 (principal)
CPT/HCPCS: 71046

== ENCOUNTER → 2020-11-08 | Outpatient (CLI) | payer BC ==
--- NOTE | 2020-11-08 18:21 | Diagnostic Imaging Report ---
EXAMINATION: PA and lateral chest at 2:49 p.m. INDICATION: Shortness of breath, history of Covid. The heart size is within normal limits and stable when compared to 08/29/2020. The lungs are clear. There is no sign of failure, pneumonia or pleural effusion. The mediastinum is not widened. The osseous structures are intact. IMPRESSION: There is no evidence for active disease. When compared to the prior study there has been no significant change. Dictated by: Dictated on workstation # [id number]
== END ==
LOC: RAD 14:05
PROVIDERS: ATTEND Family Medicine
DX: R06.02 Shortness of breath (principal); Z86.16 Personal history of COVID-19
CPT/HCPCS: 71046

== ENCOUNTER → 2021-12-22 | Outpatient (CLI) | payer BC ==
--- NOTE | 2021-12-22 12:13 | Diagnostic Imaging Report ---
Indication: Cough PA and lateral views of the chest are obtained with comparison made to study of 11/08/2020. Heart size and pulmonary vascularity remain within normal limits. There is no pneumothorax or consolidation. No significant pleural fluid is identified. There is an approximately 0.7 cm hyperdense nodule projecting over what appears to be the T6 vertebral body on the lateral image. This is not confirmed with certainty on the PA view and could be superimposition. Otherwise, no acute abnormalities identified. IMPRESSION: No definite acute abnormality is identified. However there is a hyperdense focus of approximately 0.7 cm projecting over the midthoracic spine on the lateral image. This is not confirmed on the frontal view and may be superimposition although another repeat 2 view chest radiograph or CT imaging should be performed for confirmation. Dictated on workstation # [id number]
== END ==
LOC: RAD 11:20
PROVIDERS: ATTEND Family Medicine
DX: R05.9 Cough, unspecified (principal)
CPT/HCPCS: 71046

== ENCOUNTER → 2021-12-26 | Outpatient (CLI) | payer BC ==
--- NOTE | 2021-12-26 13:01 | Diagnostic Imaging Report ---
Indication: Follow-up possible nodule noted on lateral films on 12/22/2021. FINDINGS: PA and lateral views. The round 7 mm density over the mid thoracic spine noted previously is not reproducible on today's exam. The lungs are well-aerated. There are a few calcified granuloma scattered about the lungs. IMPRESSION: Questionable nodule does not appear persistent on today's exam. No further imaging is felt necessary. Dictated by: Dictated on workstation # [id number]
== END ==
LOC: RAD 10:16
PROVIDERS: ATTEND Family Medicine
DX: R05.9 Cough, unspecified (principal)
CPT/HCPCS: 71046

== ENCOUNTER → 2022-03-16 | Outpatient (CLI) | payer BC ==
--- NOTE | 2022-03-19 09:07 | Diagnostic Imaging Report ---
INDICATION: Routine screening. COMPARISON: 08/22/2018. TECHNIQUE: 2D and 3D bilateral screening mammography was performed with CAD. FINDINGS: Both breasts are heterogeneously dense, limiting the sensitivity of mammography. The parenchymal pattern is stable. No mass or malignant-appearing microcalcifications are seen. The axillae are unremarkable. IMPRESSION: No mammographic features suspicious for malignancy are identified. ACR BI-RADS Category 1: Negative. Result letter will be mailed to the patient. Note: At least 10% of breast cancer is not imaged by mammography. Dictated by: Dictated on workstation # [id number]
== END ==
LOC: RAD 15:00
PROVIDERS: ATTEND Family Medicine
DX: Z12.31 Encounter for screening mammogram for malignant neoplasm of breast (principal)
CPT/HCPCS: 77063; 77067

== ENCOUNTER 2022-04-11 05:32 | Outpatient (CLI) | payer BC ==
[~2022-04-11] VITALS: Ht 182.9 cm; Wt 103.4 kg
[2022-04-11] MEDS ORDERED: TURM500T PO (08:49)
[2022-04-11] MEDS ORDERED: HYDR25TA4 PO (08:49)
[2022-04-11] MEDS ORDERED: BACI1CAP6 PO (08:49)
== END 2022-04-11 11:51 | disposition home or self-care (01) ==
LOC: PREOP 05:32
PROVIDERS: ATTEND Surgery
DX: Z01.818 Encounter for other preprocedural examination (principal)

== ENCOUNTER 2022-04-18 09:16 | Day surgery (SDC) | payer BC ==
--- NOTE | 2022-04-17 13:42 | HISTORY AND PHYSICAL ---
DATE OF SERVICE: PROCEDURE DATE: 04/18/2022. ATTENDING PRIMARY CARE PHYSICIAN: Dr. Declan Maldonado. HISTORY OF PRESENT ILLNESS: The patient is a 61-year-old female who is known to us. She was seen in 02/2015 for an EGD and a colonoscopy. She does have a history of gastroesophageal reflux disease as well as issues with constipation and diarrhea. She reports strong family history of colon cancer on her mother's side with her maternal grandmother and 2 maternal aunts as well as several cousins with a history of colon cancer. On 02/23/2015, she underwent an EGD with biopsy and colonoscopy. Findings were reflux esophagitis class B, small to medium size hiatal hernia approximately 2 cm in size, mild gastritis and chronic stage II external and internal hemorrhoids. Biopsies were negative for H. pylori as well as negative for Rodrigues's esophagus. On today's visit, she reports that she is here for another EGD and colonoscopy. She does report that she has been having occasional episodes of bright red blood in her stool. She denies any issues with any significant diarrhea or constipation. She does report some continued episodes of reflux. Again, she does report a family history of colon cancer with her maternal grandmother having the disease. She denies any significant abdominal pain. PAST MEDICAL HISTORY: Ischemic stroke in 07/2014, atypical migraine headaches, autoimmune disorder, lower extremity edema. PAST SURGICAL HISTORY: Partial hysterectomy in 1979, D and C x3 in , spinal surgery 2011, left knee surgery 2012. ALLERGIES: PENICILLIN. MEDICATIONS: Fluoxetine 20 mg, verapamil 40 mg, hydrochlorothiazide 25 mg, turmeric, probiotic. SOCIAL HISTORY: Negative for tobacco smoke, daily two glasses of wine. FAMILY HISTORY: Father, hypertension. Mother, hypertension, DVT, breast cancer. Maternal grandmother, colon cancer. VITAL SIGNS: Blood pressure is 131/82. Current weight is 228 pounds at 6 feet 0 inches. REVIEW OF SYSTEMS: Well-nourished female, in no acute distress. She is not experiencing any shortness of breath or difficulty breathing. No chest pain, palpitations or diaphoresis. No nausea, vomiting or abdominal pain. No diarrhea or constipation. She does report intermittent episodes of bright red blood per rectum. No dark tarry stools. She does report occasional episodes of heartburn and reflux. No hematemesis or any coffee ground emesis. No fever or chills. No recent inadvertent weight loss. All other review of systems negative. PHYSICAL EXAMINATION: CHEST: Clear. Good breath sounds bilaterally. HEART: Regular, no murmurs. EXTREMITIES: Approximately 1+ lower extremity edema. Negative Homans sign. HEENT: No scleral icterus. NECK: No cervical lymphadenopathy. ABDOMEN: Soft, nontender, nondistended. SKIN: Warm, dry and pink. NEUROLOGIC: Awake, alert and oriented x3. ASSESSMENT AND PLAN: A 61-year-old female with intermittent episodes of bright red blood in her stool as well as family history of colon cancer with her maternal grandmother having the disease, who is also having episodes of heartburn and reflux. At this time, we will proceed with scheduling her for an EGD and colonoscopy. Risks and benefits of the procedure as well as the procedure and home care instructions were explained to the patient. She verbalized understanding of instructions and agrees to proceed as planned. At this time, we will schedule her for an EGD and a colonoscopy. Job ID: [id number] DocumentID: [id number] Dictated Date: 04/17/2022 13:27:24 Marketing Researcher Date: 04/17/2022 13:41:58 Dictated By: BETTY BARON APRN
[~2022-04-18] VITALS: Ht 183 cm; Wt 103.4 kg
[~2022-04-18 09:16] MED LIST changes: +BACI1CAP6 PO; +HYDR25TA4 PO; +TURM500T PO
[2022-04-18] MEDS ORDERED: LIDOCAINE JELLY 2% 6 ML SYRINGE MM PRN (09:30)
[2022-04-18] MEDS ORDERED: HURRICAINE EXT TUBE (BENZOCAINE) XX PRN (09:30)
[2022-04-18] MEDS ORDERED: LACTATED RINGERS 1,000 ML IV STA (09:30)
[2022-04-18] MEDS ORDERED: LACTATED RINGERS 1,000 ML IV ONE (09:33)
[2022-04-18 09:40] VITALS: BP 101/74
--- NOTE | 2022-04-18 10:44 | Progress Note-Pre Operative ---
Pre-Operative Progress Note Date of Available H&P: Apr 18, 2022 Date H&P Reviewed: Apr 18, 2022 Time H&P Reviewed: 10:00 History & Physical: No changes noted Pre-Operative Diagnosis: GERD, rectal bleed RONEY SANDS MD Apr 18, 2022 10:44
[2022-04-18] MEDS ORDERED: ONDANSETRON 4 MG/2 ML (SDV) Z0FRAN IVP PRN (10:45)
[2022-04-18] MEDS ORDERED: ONDANSETRON 4 MG (ZOFRAN) ORAL DISSOLVE TAB PO PRN (10:45)
--- NOTE | 2022-04-18 10:45 | Discharge Inst-Surgical ---
D/C Lap Instructions-WICHO Follow Up Activity as tolerated High Fiber Diet 25g or more per day Avoid Alcohol, Caffeine, Spicy [place] and Acid foods. Drink 64 fluid oz or more of fluids per day. Symptoms to Report: Fever over 101 degree F, Nausea/Vomiting If any problems/questions: Contact your physician or go to Emergency Room RONEY SANDS MD Apr 18, 2022 10:45
[2022-04-18] MEDS ORDERED: PROPOFOL INJECTION 50 ML IV ONE (11:15)
[2022-04-18] MEDS ORDERED: MIDAZOLAM 2 MG/2 ML (VERSED) VIAL ONE (11:15)
[2022-04-18] MEDS ORDERED: proPOfol 200 MG/20 ML (DIPRIVAN) VIAL IV ONE (11:57)
[2022-04-18 12:08] VITALS: BP 99/57
[2022-04-18 12:10] VITALS: BP_SYST 117; BP_SYST 95; BP_DIAS 54; BP_DIAS 65
--- NOTE | 2022-04-18 12:16 | Anesthesia-General Post-Op ---
MAC Patient Condition Mental Status/LOC: Same as Preop Cardiovascular: Satisfactory Nausea/Vomiting: Absent Respiratory: Satisfactory Pain: Controlled Complications: Absent Post Op Complications Complications None Follow Up Care/Instructions Patient Instructions None needed. Anesthesiology Discharge Order Discharge Order Patient is doing well, no complaints, stable vital signs, no apparent adverse anesthesia problems. No complications reported per nursing. FAB MCKEE DO Apr 18, 2022 12:16
[2022-04-18] MEDS ORDERED: PANT40TA52 PO (12:30)
[2022-04-18 12:50] VITALS: BP 117/65
--- NOTE | 2022-04-18 12:55 | Progress Note-Post Operative ---
Post-Operative Progess Note Surgeon (s)/Sales Merchandise Associate (s) Surgeon RONEY SANDS MD Sales Merchandise Associate: none Pre-Operative Diagnosis GERD, rectal bleed Post-Operative Diagnosis reflux esophagitis(grade C), moderate Hh(3cm), mod gastritis. chronic stage 2-3 ext and int hemorrhoids. Procedure & Operative Findings Date of Procedure 04/18/22 Procedure Performed/Findings EGD with bx. Colonoscopy. Anesthesia Type mac Estimated Blood Loss Estimated blood loss (mL): minimal Specimens/Packing Specimens Removed ge jxn, antrum RONEY SANDS MD Apr 18, 2022 12:55
--- NOTE | 2022-04-18 20:05 | OPERATIVE REPORT ---
DATE OF SERVICE: 04/18/2022 ATTENDING PRIMARY CARE PHYSICIAN: Dr. Declan Maldonado. PREOPERATIVE DIAGNOSES: Gastroesophageal reflux disease, rectal bleeding. POSTOPERATIVE DIAGNOSES: Reflux esophagitis, Lignite grade C, moderate size hiatal hernia approximately 3 cm in size, moderate gastritis, chronic between stage II to III external and internal hemorrhoids. PROCEDURE: EGD with biopsy, colonoscopy. SURGEON: Roney Sands MD. ANESTHESIA: Monitored anesthesia care. ESTIMATED BLOOD LOSS: Minimal. FINDINGS: Reflux esophagitis, Lignite grade C, moderate size hiatal hernia approximately 3 cm in size, moderate gastritis, chronic between stage II to III external and internal hemorrhoids. DISPOSITION: The patient tolerated the procedure well. INDICATIONS: The patient is a 61-year-old female known to us. We had seen her in 2014 and an EGD and colonoscopy on her at that time. She does have a strong family history of colon cancer on her mother's side with her maternal grandmother and two maternal aunts and several cousins with a history of colon cancer. She was found to have a reflux esophagitis grade B as well as a moderate size hiatal hernia. She reports that she has had worsening gastroesophageal reflux disease and also has been noticing episodes of rectal bleeding on an intermittent basis. She does not report any major issues with diarrhea nor constipation. DESCRIPTION OF PROCEDURE: The patient was brought to the endoscopy suite, laid in left lateral decubitus position. After adequate IV pain and sedative medications and monitored anesthesia care, the mouthpiece was applied. The endoscope was placed in the mouth, visualizing the pharynx and hypopharyngeal region. Vocal cords, epiglottis and vallecula identified and appeared to be normal. The endoscope was then gently intubated into the esophageal opening and esophagus insufflated. The endoscope was then advanced through the first, second and third portion of esophagus at the level of the GE junction, a reflux esophagitis, Lignite grade C identified. Biopsies were taken with forceps with visualization of good hemostasis. The endoscope was then advanced in the stomach. The endoscope retroflexed, visualizing a moderate size hiatal hernia approximately 3 cm in size, which was larger than the one before. There was a moderate severity gastritis. No formal ulcerations, polyps, or any neoplasms. A biopsy was taken of the antrum to rule out H. pylori with visualization of good hemostasis. The endoscope was then advanced to the pylorus and the first and second portion of the duodenum, which appeared normal. The endoscope was then slowly withdrawn while taking a second look and suctioning of residual air with no additional findings. A digital rectal examination was performed, which revealed chronic stage II external and internal hemorrhoids, not actively edematous nor inflamed and no bleeding. Normal sphincter tone was felt and there were no palpable masses. The endoscope was then intubated to the anus and rectum gently insufflated. The endoscope was then advanced through the valves of [place] of the rectum with no polyps or any neoplasms identified. Through the sigmoid colon, no diverticulosis identified. We then proceeded to remainder of the descending, transverse and ascending colon to the cecum, which were normal. There were no polyps or any neoplasms identified throughout the colon or rectum. The endoscope was then slowly withdrawn while taking a second look and suctioning of residual air with no additional findings. The patient tolerated the procedure well. We feel that her worsening reflux is due to enlarging hiatal hernia and we are unsure how medically compliant she is and we will have her proceed with the necessary lifestyle and dietary accommodation including smaller and more frequent meals, avoiding to eating at night as well as head elevation while lying supine. She also needs to avoid caffeinated beverages, spicy, greasy and acidic foods and also restart a PPI acid crisis nurse. If she proceeds with maximal medical therapy and continues to have reflux despite this, she may be a candidate for a hiatal hernia repair, but before this, we would proceed with esophageal manometric studies to rule out an esophageal dysmotility disorder. From a standpoint of rectal bleeding, hemorrhoids the only pathology identified and we will recommend adding a fiber supplement, which should equal or exceed 25 grams daily as well as significant amounts of water to promote soft stools on a daily basis. Again, she does have a strong family history of colon cancer with multiple people having the disease. However, she does not have any first-degree relatives with a history of colon cancer, we will have her decide when to proceed with followup colonoscopies, which could be as early as 5 years or as long as 10 years. Job ID: [id number] DocumentID: [id number] Dictated Date: 04/18/2022 12:09:37 Publications Editor Date: 04/18/2022 20:04:23 Dictated By: RONEY SANDS MD
== END 2022-04-18 12:50 | disposition home or self-care (01) ==
LOC: ENDO 09:16
PROVIDERS: ATTEND Surgery
DX: K21.00 Gastro-esophageal reflux disease with esophagitis, without bleeding (principal); K44.9 Diaphragmatic hernia without obstruction or gangrene; K29.70 Gastritis, unspecified, without bleeding; K64.2 Third degree hemorrhoids; K64.4 Residual hemorrhoidal skin tags; Z80.0 Family history of malignant neoplasm of digestive organs; Z79.82 Long term (current) use of aspirin; Z91.041 Radiographic dye allergy status
CPT/HCPCS: 88305